=== PATIENT | female | born 1950 | race Caucasian/White ===

== ENCOUNTER 2016-10-15 20:38 | Emergency (ER) | payer MEDICARE, OTHER ==
[~2016-10-15] VITALS: Ht 167.6 cm; Wt 96.3 kg
[~2016-10-15 20:38] MED LIST: ALBU8.5H2 INHALATION
[2016-10-15 20:58] VITALS: BP 159/99; PULSE 106; RESP 16; O2SAT 97
--- NOTE | 2016-10-15 23:44 | ED.REPORT ---
HPI-General Illness Date of Service October 15, 2016 ED Provider: Trevor Ortiz MD The pt is a 66 year old female who presents to the ED due to 1 week of purple toes. Associated symptoms include bilateral leg swelling, prickly feeling in her legs, and intermittently cold hands and feet. Pt reports that she does feel like she cant breathe as well as normal and has a slight cough. She has no hx of heart disease. She has never experienced these symptoms previously. She denies chest pain. Nursing Notes Stated Complaint: SWOLLEN BLUE/PURPLE TOES, LIGHT HEADED Chief Complaint: Extremity Trauma Nursing Notes Reviewed: Yes Allergies: Coded Allergies: codeine (Verified Allergy, Severe, n/v, 10/15/16) hydrocodone (Verified Allergy, Severe, n/v, 10/15/16) Sulfa (Sulfonamide Antibiotics) (Verified Allergy, Unknown, 10/15/16) Scheduled Albuterol HFA (Proair HFA) 8.5 Gm Hfa.aer.ad 2 PUFFS INHALATION Q4H General Time Seen by MD: 23:23 Chief Complaint Other (bilateral purple toes) Hx Obtained From: Patient Arrived By: Walk-in Sudden in Onset?: Yes Onset Occurred: 1 week ago Symptom Duration: Since onset Severity: Current: No pain currently Recent Healthcare: No recent doctor visit, No recent hospitalization Similar Sx Previous: No Past Medical History Past Medical History asthma irritable bowel syndrome Past Surgical History Reports: Hysterectomy Smoking History Never Smoker Social History Other Social History: Good social support, , Local resident Ambulatory Status Independent Review of Systems purple toes slightly cold hands and feet Full Review of Systems Respiratory: Reports: Non-productive cough, Shortness of breath Cardiovascular: Denies: Chest pain Complete sys rev & neg: except as marked. Physical Exam Vital Signs Vital Signs Date Time Temp Pulse Resp B/P Pulse Ox O2 Delivery O2 Flow Rate FiO2 10/16/16 00:12 36.6 89 16 174/89 97 Room Air 10/15/16 23:53 89 174/89 97 Room Air 10/15/16 20:58 36.6 106 16 159/99 97 Initial VS: Reviewed Head / Eyes: Atraumatic, Normocephalic, PERRL ENT: Mucous membranes moist Neck: Supple, Non-tender Respiratory: Breath sounds normal, Clear to auscultation, No respiratory distress Abdomen / GI: Soft, Non-tender, No guarding, No rebound Back: No CVA tenderness Extremities: Vascular intact, Neuro intact, No swelling, No tenderness Skin: Warm, Dry Neurologic: Alert, Oriented General/Constitutional: Awake, Alert, No acute distress, Cooperative, Not toxic appearing Cardiovascular: Heart rate NL, Regular rhythm, Heart sounds NL, No gallop, No murmurs, No rubs faint pulses good capillary refill Re-Eval/Medical Decision Med Decision/Clinical Course 66-year-old with transient purple toes and no other findings to suggest vascular disease. Good capillary refill, intact pulses, and no evident ischemic changes. She is not a smoker, no active peripheral vascular disease. Pattern suggests intermittent vasospasm, possibly Raynaud's phenomenon. Discharged home in stable condition for follow-up with PCP. Counseled Regarding: Diagnosis, Lab results, Need for follow-up, When/why to return to ED Discharge & Departure Primary Impression: Arterial spasm Additional Impression: Raynauds phenomenon Disposition: Home Discharge Condition All VS Reviewed: Yes Condition: Stable Additional Instructions: There are no acute findings for your symptoms, but no suggestion of any dangerous cause. We suspect spasm as the source, and this can happen for a number of reasons, but they are almost all self-limited. Avoid excessive caffeine consumption. I recommend you follow up with your primary care physician in the next week. Return to the Emergency Room for any new or worsening symptoms including chest pain, shortness of breath, and lower extremity swelling. I hope you feel better soon! Avoid contact with the cat. Keep the cat out of your sleeping room. This should be your last Cat. Referrals: Angel Verduzco MD (PCP) Scribe Attestation Portion of this note were transcribed by Suma Guthrie. I, Dr. Trevor Ortiz, personally performed the history, physical exam, and medical decision- making: I reviewed and confirmed the accuracy for the information in the transcribed note. Signed by: natalya Perez, 10/16/16 0100 copies to: Angel Verduzco MD, Christopher W MD October 15, 2016 23:44 Suma Guthrie October 15, 2016 23:50
[2016-10-15 23:53] VITALS: BP 174/89; PULSE 89; O2SAT 97
[2016-10-16 00:12] VITALS: BP 174/89; PULSE 89; RESP 16; O2SAT 97
== END 2016-10-16 00:13 | disposition home or self-care (01) ==
LOC: SED 20:38
DX: I73.00 Raynaud's syndrome without gangrene (principal); M79.89 Other specified soft tissue disorders; R05 Cough; J45.909 Unspecified asthma, uncomplicated; Z88.2 Allergy status to sulfonamides; Z88.5 Allergy status to narcotic agent

== ENCOUNTER 2017-02-10 16:29 | Observation (INO) | payer MEDICARE, OTHER ==
[~2017-02-10] VITALS: Ht 162.6 cm; Wt 91.2 kg
[2017-02-10 02:52] VITALS: BP 126/73; PULSE 81; O2SAT 96
[2017-02-10 16:31] VITALS: BP 153/100; PULSE 88; RESP 16; O2SAT 96
--- NOTE | 2017-02-10 16:53 | ED.REPORT ---
HPI-Chest Pain 40 and Over Date of Service Feb 10, 2017 ED Provider: Eladio Ziegler DO Patient is a 66 year old female who presents to the ED complaining of intermittent L sided pressure and palpitations onset yesterday. She has had three episodes, each while at rest, that last just a few seconds accompanied by nausea and a brief headache with some eye pain. Associated symptoms include fatigue. She denies diaphoresis, vomiting, syncope, numbness, focal weakness, melena, hematochezia, or any other symptoms. Nursing Notes Stated Complaint: CHEST PAIN/DIZZINESS Chief Complaint: Chest Pain Nursing Notes Reviewed: Yes Allergies: Coded Allergies: codeine (Verified Allergy, Severe, n/v, 10/15/16) hydrocodone (Verified Allergy, Severe, n/v, 10/15/16) Sulfa (Sulfonamide Antibiotics) (Verified Allergy, Unknown, 10/15/16) Scheduled Albuterol HFA (Proair HFA) 8.5 Gm Hfa.aer.ad 2 PUFFS INHALATION Q4H General Time Seen by MD: 16:52 Chief Complaint Chest pressure Hx Obtained From: Patient Arrived By: Walk-in Sudden in Onset?: Yes Onset Occurred: Yesterday Symptom Duration: Intermittent Location: : Chest left Quality: Pressure Severity: Current: Moderate Severity: Maximum: Moderate Similar Sx Previous: No Risk Factors )( CAD Risk Stratification No Diabetes mellitus, No Hyperlipidemia, No Hypertension Risk factors reviewed )( TAD Risk Stratification No Hypertension, No Risk factors reviewed )( PE Risk Stratification No , No , No Previous DVT, No Previous PE Risk factors reviewed HEART Score HEART for MACE Score: 4-7 (mod risk 12%-16.6%) (4) Past Medical History Past Medical History asthma irritable bowel syndrome anxiety arthritis dry eyes Past Surgical History R ankle Reports: Cholecystectomy, Hysterectomy Reports: Tubal ligation Family History Grandfather at 42 from [place] Reports: Coronary artery disease Smoking History Never Smoker Social History Other Social History: Good social support, , Local resident Ambulatory Status Independent Review of Systems Constitutional: Reports: Fatigue Cardiovascular: Reports: Chest pain, Palpitations GI: Reports: Nausea, Denies: Hematochezia, Melena, Vomiting Skin: Denies Diaphoresis Neurologic: Reports: Headache (with eye pain ), Denies: Focal weakness, Numbness Complete sys rev & neg: except as marked. Physical Exam Initial Vital Signs Vital Signs (First) Date Time Temp Pulse Resp B/P Pulse Ox O2 Delivery O2 Flow Rate FiO2 02/10/17 16:31 36.4 88 16 153/100 96 Room Air Initial VS: Reviewed, Vital signs abnormal Head / Eyes: Atraumatic, Normocephalic Neck: Supple, Full range of motion Skin: Warm, Dry Neurologic: Alert, Oriented, Nonfocal Psychiatric: Mood/affect normal, Behavior normal, Normal thought content General/Constitutional: Awake, Alert, No acute distress Respiratory / Chest: Atraumatic, Breath sounds NL, Breath sounds = bilat, No respiratory distress Cardiovascular: Heart rate NL, Regular rhythm, Heart sounds NL Abdomen: Atraumatic, Soft, Non-tender Interpretation & Diagnostics Lab Results Interpretation Result Diagram: 02/10/17 1710 02/10/17 1710 Test 02/10/17 17:10 02/10/17 17:12 02/10/17 17:27 White Blood Count 10.4th/mm3 (3.8-10.1) Red Blood Count 4.40mil/mm3 (3.90-5.20) Hemoglobin 13.4g/dL (12.0-15.6) Hematocrit 40.3% (35.0-46.0) Mean Corpuscular Volume 91.6fL (81-100) Mean Corpuscular Hemoglobin 30.5pg (27.0-35.0) Mean Corpuscular Hemoglobin Concent 33.3% (32.0-37.0) Red Cell Distribution Width 12.5% (12.3-15.4) Platelet Count 288bil/L (150-400) Neutrophils (%) (Auto) 39.7% (40-74) Lymphocytes (%) (Auto) 50.9% (14-46) Monocytes (%) (Auto) 7.5% (4-12) Eosinophils (%) (Auto) 1.6% (0-5) Basophils (%) (Auto) 0.2% (0-3) Sodium Level 137mEq/L (134-144) Potassium Level 4.5mEq/L (3.5-5.2) Chloride Level 99mEq/L (97-108) Carbon Dioxide Level 22mmol/L (18-29) Blood Urea Nitrogen 14mg/dL (8-27) Creatinine 0.88mg/dL (0.57-1.00) Estimat Glomerular Filtration Rate 92mL/min (>59) Glucose Level 99mg/dL (60-99) Calcium Level 9.4mg/dL (8.5-10.1) Magnesium Level 2.0mg/dL (1.6-2.6) Total Bilirubin 0.2mg/dL (0.0-1.2) Aspartate Amino Transf (AST/SGOT) 17U/L (0-50) Alanine Aminotransferase (ALT/SGPT) 19U/L (0-32) Alkaline Phosphatase 78U/L (25-165) Troponin T < 0.010ug/L (0.0-0.011) Pro-B-Type Natriuretic Peptide 83.83pg/mL (0-301) Total Protein 7.2g/dL (6.4-8.4) Albumin 4.2g/dL (3.4-5.0) D-Dimer < 0.50mg/L FEU (<0.50) Hold Ness Top Tube Received (Received) ECG Interpretation ECG Interpretation: Sinus rate 86 non-specific ST changes Time: 16:49 Interpreted by: ED physician X-Ray Chest Interpretation Chest Xray Interpretation: IMPRESSION: 1. No acute cardiopulmonary disease. Dictated by: Oswald Lamar M.D. on 02/10/2017 at 17:16 Approved by: Oswald Lamar M.D. on 02/10/2017 at 17:16 View: Portable, 1 view Interpretation / Wet Read by: Interpret - Radiologist Re-Eval/Medical Decision Med Decision/Clinical Course Heart score of 4, and chest pain relieved after 2 nitroglycerin. We will plan to admit for cardiac rule out and provocative stress testing. Time of Eval: 17:59 Re-Evaluation/Progress Note: Rechecked pt who is nearly pain free after 1 nitro but reports some chest tenderness. Discussed plan for admission. Patient understands and agrees with plan. All questions addressed at this time. Counseled Regarding: Diagnosis, Lab results, Need for admission Discharge & Departure Primary Impression: Chest pain Chest pain type: unspecified Qualified Code: R07.9 - Chest pain, unspecified Disposition: ADMITTED TO HOSPITAL Discharge Condition All VS Reviewed: Yes Condition: Stable Referrals: Angel Verduzco MD (PCP) Scribe Attestation Portions of this note were transcribed by Leonila Diaz. I, Dr. Ziegler personally performed the history, physical exam and medical decision-making; I reviewed and confirmed the accuracy of the information in the transcribed note. Signed: Iftikhar Acosta, 02/10/17 copies to: nAgel Verduzco MD, Timothy S DO Feb 10, 2017 16:53 LEONILA DIAZ Feb 10, 2017 17:03
[2017-02-10] MEDS ORDERED: Ondansetron 2 mg/mL 2 mL Inj IVPUSH PRN ×2 (17:05→18:20)
[2017-02-10 17:14] LABS: BASOPHILS % (AUTO) 0.2 % (0-3); EOSINOPHILS % (AUTO) 1.6 % (0-5); MONOCYTES % (AUTO) 7.5 % (4-12); Mean Corpuscular Hemoglobin 30.5 pg (27.0-35.0); Mean Corpuscular Volume 91.6 fL (81-100); NEUTROPHILS % (AUTO) 39.7 % (40-74); Platelet Count 288 bil/L (150-400)
--- NOTE | 2017-02-10 17:18 | DRSVH ---
PROCEDURE: X-RAY CHEST ONE VIEW, PORTABLE ([id number]) INDICATIONS: Chest pain TECHNIQUE: One view of the chest was acquired. COMPARISON: [facility], , CHEST 2 VIEW, 07/15/2014, 11:01. FINDINGS: Surgical changes and devices: None. Lungs and pleura: No pleural effusions or pneumothorax. Lungs are clear. Mediastinum: Mediastinal contours appear normal. Heart size is normal. Bones and chest wall: No suspicious bony lesions. Overlying soft tissues appear unremarkable. IMPRESSION: 1. No acute cardiopulmonary disease. Dictated by: Oswald Lamar M.D. on 02/10/2017 at 17:16 Approved by: Oswald Lamar M.D. on 02/10/2017 at 17:16
[2017-02-10 17:45] LABS: TROPONIN T < 0.010 ug/L (0.0-0.011)
[2017-02-10 17:59] VITALS: BP 121/83; PULSE 87; O2SAT 99
[2017-02-10] MEDS ORDERED: Alum-Mag Hydrox-Simeth 30 mL Suspension PO PRN ×2 (18:20→20:45)
[2017-02-10 19:42] VITALS: BP 127/78; PULSE 78; RESP 20; O2SAT 97
[2017-02-10] MEDS ORDERED: MULT-1053 PO (19:47)
[2017-02-10] MEDS ORDERED: PROP1DRO BOTH_EYES (19:47)
[2017-02-10] MEDS ORDERED: MULT-528 PO (19:52)
[2017-02-10] MEDS ORDERED: CYAN10008 PO (19:52)
[2017-02-10] MEDS ORDERED: CHOL200025 PO (19:52)
[2017-02-10] MEDS ORDERED: TURMERIC PO (19:52)
[2017-02-10] MEDS ORDERED: CALC-51 PO (19:52)
[2017-02-10] MEDS ORDERED: FEG324 PO (19:52)
[2017-02-10] MEDS ORDERED: ZINC50TA4 PO (19:52)
[2017-02-10 20:05] VITALS: PULSE 75
[2017-02-10 20:37] VITALS: BP 147/90; PULSE 68; RESP 18; O2SAT 97
[2017-02-10] MEDS ORDERED: Senna-Docusate 8.6-50 mg Tablet PO PRN (20:45)
[2017-02-10] MEDS ORDERED: Polyethylene Glycol (PEG) 17 Gm Powder PO PRN (20:45)
[2017-02-10] MEDS ORDERED: Atropine 1 mg/10 mL (Code) Syringe IVPUSH PRN (20:45)
--- NOTE | 2017-02-10 21:33 | PCM.HPMED ---
Subjective Date of Service Feb 10, 2017 Primary Provider: Admitting Physician: Annemarie Yap DO Primary Care Physician: Angel Verduzco MD Attending Physician: Annemarie Yap DO Admit Status: From the Emergency Department Chief Complaint: Chest heaviness History of Present Illness: Patient is a 66-year-old female that presents with chest heaviness with exertion and at rest relieved with nitroglycerin in the ED. She has a history of anxiety with chest pain, Reynauds syndrome, and prediabetes. Patient presented to ED per private car after being advised by triage nurse to call an ambulance for chest pressure accompanied by nausea and sweating this morning. Patient reports chest pressure started while sitting at [employer]levism and worsened after walking into her house. It did not resolve until she was treated with nitroglycerin in the emergency department. She reports that she has been having chest pressure on and off both at rest and with exertion for approximately 3 weeks accompanied by fatigue and intermittent labored breathing. Patient admits to intermittent back pain on the left during this time as well. Patient has recent intentional weight loss of 17 pounds over the last 3 months after diagnosis of prediabetes and Reynaud's syndrome affecting her toes. She admits to rare alcohol use, a distant history of tobacco use (a few cigarettes per day for 1 year). Over the last 3 months, she has had a diet change to vegetarian, low fat diet. She supplements with vitamins including iron, B12. Patient denies personal history of heart disease, admits her maternal grandfather of [place] at 42. Patient denies current chest pain, dizziness, shortness of breath, nausea, sweating, and fatigue. Review of Systems: For pertinent positives and negatives in history of present illness. Complete 12 point review of systems performed and otherwise negative. Allergies Coded Allergies: codeine (Verified Allergy, Severe, n/v, 10/15/16) hydrocodone (Verified Allergy, Severe, n/v, 10/15/16) Sulfa (Sulfonamide Antibiotics) (Verified Allergy, Unknown, 10/15/16) PMH 1. Chest pain 2. Prediabetes 3. Irregular heartbeat 4. Arterial spasm 5. Raynaud's Phenomenon Surgical History 1. Hysterectomy at age 34 2. Surgical repair of right foot Family History 1. Maternal grandfather, [place] age 42, cause of No other contributory family history Social History Hx Alcohol Use: Yes (rare) Hx Substance Use: No Hx Tobacco Use: Yes (less than 1 year half pack) Smoking Status: Former Smoker, Never Smoker Years of Smokin Living Arrangement: with Family Exam Vital Signs Vital Sign - Last Date Time Temp Pulse Resp B/P Pulse Ox O2 Delivery O2 Flow Rate FiO2 02/10/17 20:37 36.4 68 18 147/90 97 Room Air Exam GENERAL: Nondistressed, obese female. HEENT: NC/AT, EOM intact, PERRLA, clear conjunctiva, white sclera. No nasal discharge, nontender sinuses. No pharyngeal erythema or exudate. CV: Regular rate and rhythm, no rubs, murmurs, or gallops appreciated. Capillary refill less than 2 seconds bilaterally lower extremity. Dorsal and tibial pulses 2 of 4 bilaterally. Trace edema right ankle, no edema left ankle. RESP: Clear to auscultation bilaterally, no wheezes or rhonchi appreciated. ABD: Bowel sounds normal, nondistended, nontender all 4 quadrants. LYMPH: No cervical adenopathy appreciated. EXT: No swelling except right ankle as seen above. PSYCH: Alert and oriented 4, normal affect, linear and appropriate communication. NEURO: Light touch sensation intact upper and lower extremities bilaterally, muscle strength 4 out of 4 upper and lower extremity bilaterally, no facial asymmetry is appreciated. DTRs equal bilaterally upper and lower extremity. SKIN: No rashes apparent on his skin. Lab and Diagnostics Labs Troponin T at 17:10 <0.010 Result Diagram: 02/10/17170902/10/170 Assessment & Plan 66-year-old female presented with chest pressure present at rest and with exertion relieved with nitroglycerin. 1. Chest pain/pressure, present on admission - Chest pressure associated with nausea and sweating. - Low Newcomb score with only 2 risk factors. - Patient has prediabetes, obesity with chest pain relieved with nitroglycerin. - Normal chest x-ray. - First troponin 17:10 <0.010. Second to be performed at 23:00, and third to be performed at 5:00 tomorrow morning. - Stress test to be performed in the morning. - Nothing by mouth after midnight. - Patient received nitroglycerin, aspirin, and Zofran in the emergency department. - Daily aspirin - Nitroglycerin for chest pain - Zofran for nausea - Start atorvastatin - Add beta stefano if symptoms return otherwise hold off due to upcoming stress test 2. Prediabetes, present on admission - Patient reports this is diet controlled with fasting blood sugars of 90 at home. - Hemoglobin A1c in the morning. Patient is being admitted under observation status with an expected length of stay less than 2 midnights. Pain Evaluation: Adequate Pain Control GI Prophylaxis: Not indicated VTE Prophylaxis: Sub-Q Heparin (Unfractionated) VTE Mechanical Devices: Intermittant Pneumatic CD Resuscitation Status: CPR: Attempt Resuscitation Attending Statement The patient was seen and examined together with house staff on 02/10/2017 and I agree with the history, exam and plan as outlined in the note above. Ashia Cano DO Feb 10, 2017 21:33 Annemarie Yap DO Feb 11, 2017 03:11
[2017-02-10 21:42] LABS: Creatine Kinase 88 U/L (21-215)
[2017-02-10 22:56] LABS: APPEARANCE,URINE CLEAR (CLEAR,HAZY); COLOR,URINE YELLOW (YELLOW); OCCULT BLOOD,URINE SMALL (NEGATIVE); PH,URINE 5.5 (5.0-8.0); UROBILINOGEN,URINE NORMAL (NORMAL)
--- NOTE | 2017-02-10 23:10 | NUR ---
Admit note: Pt arrived from the ER, up ambulating in the room independently and steady on feet. Alert and oriented x3. Denies chest pain upon arrival. Came to the ER after having left chest pain, diaphoresis, and a headache per pt. Tele SR 70s. Aware of current plan of care and NPO after midnight status. Oriented to room and call light, is using call light with needs.
[2017-02-10] MEDS: Heparin 5,000 Unit/mL Inj SUBQ SCH (23:50)
[2017-02-11] VITALS (12 sets, daily range): BP systolic 112–144; BP diastolic 69–87; PULSE 56–86; RESP 17–20; O2SAT 96–99
[2017-02-11] MEDS ORDERED: Morphine 2 mg/mL 5 mL Oral Solution PO PRN ×2 (03:35→04:45)
[2017-02-11 03:52] LABS: Creatine Kinase 71 U/L (21-215)
--- NOTE | 2017-02-11 05:10 | NUR ---
Chest pain: Pt had an episode of chest pressure at 2/10 to left chest. Reported feeling "shaky" appeared tearful at the time, stated wanting to know what was "going on" with her. EKG obtained and one nitro administered. BP with one nitro decreased from 144/87 to 112/71. Pt reported after the nitro having "tingling" and a warm feeling down her left arm. MD notified, both night residents talked with the pt, PO Morphine was ordered as there was no access to IV Morphine at the time. Reported slight nausea when getting up to the BSC. After the Morphine took effect, pt was assisted with positioning in the bed due to chronic back pain and resting.
[2017-02-11 05:40] LABS: BASOPHILS % (AUTO) 0.1 % (0-3); EOSINOPHILS % (AUTO) 2.2 % (0-5); MONOCYTES % (AUTO) 8.2 % (4-12); Mean Corpuscular Hemoglobin 30.2 pg (27.0-35.0); Mean Corpuscular Volume 91.4 fL (81-100); NEUTROPHILS % (AUTO) 37.4 % (40-74); Platelet Count 246 bil/L (150-400)
[2017-02-11 06:43] LABS: TROPONIN T 0.01 ug/L (0.0-0.011)
[2017-02-11] MEDS ORDERED: Albuterol 2.5 mg/3 mL Inhalation Solution NEB PRN (07:00)
[2017-02-11] MEDS: Heparin 5,000 Unit/mL Inj SUBQ SCH ×2 (07:45→16:22)
--- NOTE | 2017-02-11 09:15 | NUR ---
Social Work-initial assessment/ readiness for discharge: Data:See initial assessment. Pt is a 66 y/o female who was admitted on 02/10/17 for chest pain per H&P. Pt's insurance is [employer] and PCP is Angel Verduzco MD. EMR Reviewed. Pt's readmission score is 0. SW met with pt at bedside, SW role explained. Pt is alert and oriented x3. Pt resides at home with her in [place] where she remains independent with ADLS. Pt does not use any DME and drives. Pt has no HH or SNF history. Pt has no intermediate care insurance or VA Benefits. SW discussed DPOA/ advanced directive, pt confirms she has completed this, SW encouraged a copy to be brought in. No concerns noted from MD stevedoring supervisor regarding pt's capacity for self care. Pt has been up independent in her room. Pt's to provide transport home. No anticipated discharge needs. SW will continue to follow if needs arise. Assessment:pt who is independent at baseline. Plan:Pt to discharge home when medically stable via POV. No anticipated discharge needs. SW will continue to follow if needs arise. EDEL Tran Addendum: 02/11/17 at 0920 by DAVID AMEZCUA Amended: Links added.
--- NOTE | 2017-02-11 10:14 | NUR ---
Case Management: DENISE given and explained to pt. Niharika NORRISRN
--- NOTE | 2017-02-11 15:04 | DRSVH ---
PROCEDURE: EITHER REST OR STRESS ONLY Exercise myocardial perfusion SPECT with gated imaging and ejection fraction RADIOPHARMACEUTICAL: 22.1 mCi Tc-99m tetrofosmin IV at peak exercise. INDICATIONS: CHEST PAIN ON EXERTION. TECHNIQUE: Radiopharmaceutical was injected at peak stress test. SPECT images were obtained, with p erfusion images in short axis, horizontal long axis, and vertical long axis views. Gated images were reviewed using [employer] software. COMPARISON: None. CARDIAC STRESS: A standard Greg treadmill exercise tolerance test was performed by the patient unde r the supervision of an attending staff. The patient exercised for 3 minutes and 34 seconds; functio nal aerobic impairment (EDGARDO) is +35%. Hemodynamic data: There was normal blood pressure response. There was enhanced chronotropic respons e. Symptoms: The patient developed generalized fatigue. EKG: Baseline rhythm was sinus with left anterior fascicular block. Stress EKG did not reveal any o bvious inducible ischemic changes. There were no significant arrhythmias. FINDINGS: Raw data: There appears to be adequate myocardial uptake. Left ventricular function: Stress LV ejection fraction 64% with stress end-diastolic volume 70 mL. I do not see any obvious wall motion abnormalities. Myocardial perfusion: Stress supine and stress prone images reveal normal myocardial perfusion. IMPRESSION: 1. This is a normal myocardial perfusion study with preserved LV function; however patient has poor f unctional capacity. She was able to achieve 4.6 METS of workload. Her functional aerobic impairment is +35%. Clinical correlation is recommended. Dictated by: Alexander Allan M.D. on 02/11/2017 at 14:29 Transcribed by: PAIGE on 02/11/2017 at 18:04 Approved by: Alexander Allan M.D. on 02/13/2017 at 16:43
--- NOTE | 2017-02-11 16:34 | DRSVH ---
[facility] [address] [place] [address] Echocardiogram Report Name: BARBARA FRANKS RStudy Date: 09/2016 Height: 64 in Hospital Exam Location: [facility] Weight: 201 lb Gender: Female BSA: 2.0 m2 : 1950 Age: 66 yrs BP: 129/75 mmHg Reason For Study: Chest Pain Ordering Physician: HOSPITALIST [facility] Performed By: Idania Giron Referring Physician: LARRY ARNOLD Interpretation Summary The left ventricle is grossly normal size. The ejection fraction is estimated to be 50-55%. There is mild global hypokinesis of the left ventricle. The right ventricle is grossly normal size. The right ventricular systolic function is normal. No significant valvular pathology seen. Procedure: A two-dimensional transthoracic echocardiogram with color flow and Doppler was performed. The study quality was technically good. There is no prior echocardiogram noted for this patient. The patient was in normal sinus rhythm during the exam. Left Ventricle: Left ventricular wall thickness is at the upper limits of normal. The left ventricle is grossly normal size. Proximal septal thickening is noted. There is no echo evidence for significant left ventricular outflow tract obstruction. The ejection fraction is estimated to be 50-55%. There is mild global hypokinesis of the left ventricle. Assessment of diastolic parameters indicates a relaxation abnormality of the left ventricle, consistent with normal filling pressures. Right Ventricle: The right ventricle is grossly normal size. The right ventricular systolic function is normal. Atria: The left atrial size is normal. Right atrial size is normal. The interatrial septum is intact with no evidence for an atrial septal defect. Mitral Valve: The mitral valve leaflets appear mildly thickened, but open well. There is mild mitral annular calcification. There is trace mitral regurgitation. Aortic Valve: The aortic valve is trileaflet. The aortic valve opens well. The aortic valve is slightly calcified. No aortic regurgitation is present. Tricuspid Valve: The tricuspid valve is normal in structure and function. There is trace tricuspid regurgitation. Pulmonary artery pressures cannot be estimated because of the lack of a measurable TR jet velocity. Pulmonic Valve: The pulmonic valve is not well seen, but is grossly normal. There is a trace or physiologic amount of pulmonic regurgitation. Great Vessels: The aortic root is normal size. The ascending aorta is at the upper limits of normal in size. The IVC is of normal diameter and collapses greater than 50% with a sniff. This suggests a low right atrial pressure of 3 mm Hg. Pericardium/ Pleura There is no pericardial effusion. There is an anterior echo-free space consistent with a fat pad. There is no pleural effusion. MMode/2D Measurements & Calculations LVIDd: 5.2 cm RA long axis LVOT diam: 2.2 cm LVIDs: 3.0 cm LA A2 area: 16.6 cm Ao root diam FS: 42.8 % LA A4 area: 15.6 cm RA area IVSd: 0.91 cm LA length (vol) Ao Arch Diam (Prox LVPWd: 0.98 cm : 15.3 cm Trans): 2.4 cm LA vol: 49.8 ml RA vol LA vol index : 42.4 ml RA : 25.4 ml/m2 : 21.6 mm2 LV blackman. diameter/BSA LV sys. diameter/BSA TAPSE: 1.7 cm (cm/m^2): 2.7 (cm/m^2): 1.5 Doppler Measurements & Calculations Ao V2 max: 99.4 cm/sec MV E max adryan MV E/A: 0.84 PA V2 max Ao max P.9 mmHg : 51.5 cm/sec Med Peak E' Adryan : 52.8 cm/sec Ao mean P.5 mmHg MV A max adryan PA mean PG LVOT Max Adryan : 61.6 cm/sec E/E' med: 9.3 : 0.63 mmHg : 81.9 cm/sec Lat Peak E' Adryan [place](I,D): 3.2 cm sev ratio: 0.83 E/E' lat: 6.4 E/e' average: 7.9 MV dec time: 0.29 sec Ao V2 mean LV V1 max PG PA V2 mean : 77.5 cm/sec : 38.5 cm/sec Ao V2 VTI: 21.9 cmLV V1 VTI: 18.1 cm PA pr(Accel) [place](V,D): 3.2 cm2 : 34.0 mmHg [place] indexed to BSA (cm^2/m^2): 1.7 Reading Physician:PM
--- NOTE | 2017-02-11 16:45 | PCM.DIMED ---
Discharge Instructions Date of Service Feb 11, 2017 Dates of Hospitalization Feb 10, 2017 at 19:01 Discharge Diagnosis Discharge Diagnosis 1. Chest pain/pressure, present on admission.ACS ruled out 2. Prediabetes, present on admission Test Results Test Results stress test normal Diet Discharge Diet: Low fat, Low Sodium Activity Discharge Activity: Limited until seen by PCP Call your provider Call your provider for: Fever or Chills, Shortness of breath, Bleeding, Chest pain, Vomitting, Excessive diarrhea, Weakness (unilateral) Patient Instructions Patient Instructions You were hospitalized due to chest pain. Workup is negative for heart attack/ coronary artery disease. Pain may be due to acid reflux. Please take Protonix 20 mg daily. Please follow-up with PCP in 1 week. Follow-up Provider: Angel Verduzco MD Follow-up with PCP in: 1 week Dong Zapata MD Feb 11, 2017 16:45
[2017-02-11] MEDS ORDERED: PANT20T PO (16:46)
[2017-02-11] MEDS ORDERED: ASPI81TA3 PO (16:46)
--- NOTE | 2017-02-11 16:46 | NUR ---
Social Work-discharge: Data:EMR reviewed. Pt is on day 1 of hospitalization for chest pain per H&P. Pt is medically stable for discharge. Pt resides at home with her in [place] where she remains independent with ADLs. Per RN notes, pt has been up independent at baseline. No discharge needs identified. All updated and agreeable to plan. Assessment:pt who is independent at baseline. Plan:Pt to discharge home today via POV. No discharge needs identified. All updated and agreeable to plan. EDEL Tran
--- NOTE | 2017-02-11 17:40 | NUR ---
Discharge Patient discharge to home with all belongings at 1739. Explained to patient new medications (aspirin and pantoprazole), when next medications are due and discharge instructions. Dc'd IV intact. Dc'd telemetry. Vitals stable. Patient left floor via wheelchair accompanied by and CUSTOMER SERVICE LEADER with no signs of distress.
--- NOTE | 2017-02-11 20:30 | PCM.DC.MED ---
Discharge Summary Date of Service Feb 11, 2017 Dates of Hospitalization Date of Hospital Admission Feb 10, 2017 at 19:01 Date of Discharge: Feb 11, 2017 Providers: Admitting Physician: Annemarie Yap DO Primary Care Physician: Angel Verduzco MD Attending Physician: Annemarie Yap DO Diagnosis at Time of Discharge Diagnosis at Time of Discharge 1. Chest pain/pressure, present on admission.ACS ruled out 2. Prediabetes, present on admission Procedures Cardiac Echo Impression Interpretation Summary The left ventricle is grossly normal size. The ejection fraction is estimated to be 50-55%. There is mild global hypokinesis of the left ventricle. The right ventricle is grossly normal size. The right ventricular systolic function is normal. No significant valvular pathology seen. Other Diagnostics PROCEDURE: EITHER REST OR STRESS ONLY Exercise myocardial perfusion SPECT with gated imaging and ejection fraction RADIOPHARMACEUTICAL: 22.1 mCi Tc-99m tetrofosmin IV at peak exercise. INDICATIONS: CHEST PAIN ON EXERTION. TECHNIQUE: Radiopharmaceutical was injected at peak stress test. SPECT images were obtained, with perfusion images in short axis, horizontal long axis, and vertical long axis views. Gated images were reviewed using [employer] Engine software. COMPARISON: None. CARDIAC STRESS: A standard Greg treadmill exercise tolerance test was performed by the patient under the supervision of an attending staff. The patient exercised for 3 minutes and 34 seconds; functional aerobic impairment ( EDGARDO) is +35%. Hemodynamic data: There was normal blood pressure response. There was enhanced chronotropic response. Symptoms: The patient developed generalized fatigue. EKG: Baseline rhythm was sinus with left anterior fascicular block. Stress EKG did not reveal any obvious inducible ischemic changes. There were no significant arrhythmias. FINDINGS: Raw data: There appears to be adequate myocardial uptake. Left ventricular function: Stress LV ejection fraction 64% with stress end- diastolic volume 70 mL. I do not see any obvious wall motion abnormalities. Myocardial perfusion: Stress supine and stress prone images reveal normal myocardial perfusion. IMPRESSION: 1. This is a normal myocardial perfusion study with preserved LV function; however patient has poor functional capacity. She was able to achieve 4.6 METS of workload. Her functional aerobic impairment is +35%. Clinical correlation is recommended. Dictated by: Alexander lAlan M.D. on 02/11/2017 at 14:29 Transcribed by: PAIGE on 02/11/2017 at 18:04 Brief History per HPI Patient is a 66-year-old female that presents with chest heaviness with exertion and at rest relieved with nitroglycerin in the ED. She has a history of anxiety with chest pain, Reynauds syndrome, and prediabetes. Patient presented to ED per private car after being advised by triage nurse to call an ambulance for chest pressure accompanied by nausea and sweating this morning. Patient reports chest pressure started while sitting at [employer] and worsened after walking into her house. It did not resolve until she was treated with nitroglycerin in the emergency department. She reports that she has been having chest pressure on and off both at rest and with exertion for approximately 3 weeks accompanied by fatigue and intermittent labored breathing. Patient admits to intermittent back pain on the left during this time as well. Patient has recent intentional weight loss of 17 pounds over the last 3 months after diagnosis of prediabetes and Reynaud's syndrome affecting her toes. She admits to rare alcohol use, a distant history of tobacco use (a few cigarettes per day for 1 year). Over the last 3 months, she has had a diet change to vegetarian, low fat diet. She supplements with vitamins including iron, B12. Patient denies personal history of heart disease, admits her maternal grandfather of [place] at 42. Patient denies current chest pain, dizziness, shortness of breath, nausea, sweating, and fatigue. Hospital Course 66-year-old female presented with chest pressure present at rest and with exertion relieved with nitroglycerin. 1. Chest pain/pressure, present on admission - Chest pressure associated with nausea and sweating. -patient has neck pain with left little finger numbness.She has scheduled ortho appointment tomorrow for her cervical spine problem.pain may be neuropathic .will treat her for GERD also - Low Carter score with only 2 risk factors. - Patient has prediabetes, obesity with chest pain relieved with nitroglycerin. - Normal chest x-ray. - troponin negative x3 - Stress test negative - c/w Daily aspirin 81 -trial protonix 20mg - Nitroglycerin for chest pain - Zofran for nausea -lipid panel ok ,LDL 95 2. Prediabetes, present on admission - Patient reports this is diet controlled with fasting blood sugars of 90 at home. - Hemoglobin A1c pemding,follow up with PCP 3.suspected radiculopathy and back pain -f/u with ortho discharge home Exam Vital Signs (Last) Date Time Temp Pulse Resp B/P Pulse Ox O2 Delivery O2 Flow Rate FiO2 02/11/17 17:04 86 133/85 02/11/17 13:21 36.4 17 96 Room Air 02/11/17 02:52 2.00 Exam GENERAL: Nondistressed, obese female. HEENT: NC/AT, EOM intact, PERRLA, clear conjunctiva, white sclera. No nasal discharge, nontender sinuses. No pharyngeal erythema or exudate. CV: Regular rate and rhythm, no rubs, murmurs, or gallops appreciated. Capillary refill less than 2 seconds bilaterally lower extremity. Dorsal and tibial pulses 2 of 4 bilaterally. Trace edema right ankle, no edema left ankle. RESP: Clear to auscultation bilaterally, no wheezes or rhonchi appreciated. ABD: Bowel sounds normal, nondistended, nontender all 4 quadrants. LYMPH: No cervical adenopathy appreciated. EXT: No swelling except right ankle as seen above. PSYCH: Alert and oriented 4, normal affect, linear and appropriate communication. NEURO: Light touch sensation intact upper and lower extremities bilaterally, muscle strength 4 out of 4 upper and lower extremity bilaterally, no facial asymmetry is appreciated. DTRs equal bilaterally upper and lower extremity. SKIN: No rashes apparent on his skin. Test 02/10/17 17:10 02/10/17 17:12 02/10/17 17:27 02/10/17 22:35 Magnesium Level 2.0mg/dL (1.6-2.6) Total Bilirubin 0.2mg/dL (0.0-1.2) Aspartate Amino Transf (AST/SGOT) 17U/L (0-50) Alanine Aminotransferase (ALT/SGPT) 19U/L (0-32) Alkaline Phosphatase 78U/L (25-165) Pro-B-Type Natriuretic Peptide 83.83pg/mL (0-301) Total Protein 7.2g/dL (6.4-8.4) Albumin 4.2g/dL (3.4-5.0) Thyroid Stimulating Hormone (TSH) 2.690uIU/mL (0.450-4.500) D-Dimer < 0.50mg/L FEU (<0.50) Hold Ness Top Tube Received (Received) Urine Color Yellow (YELLOW) Urine Appearance Clear (CLEAR,HAZY) Urine pH 5.5 (5.0-8.0) Urine Specific [place] 1.010 (1.003-1.035) Urine Protein Negativemg/dL (NEG,TRACE) Urine Glucose (UA) Negativemg/dL (NEGATIVE) Urine Ketones Negativemg/dL (NEGATIVE) Urine Occult Blood Small (NEGATIVE) Urine Nitrite Negative (NEGATIVE) Urine Bilirubin Negative (NEGATIVE) Urine Urobilinogen Normalmg/dL (NORMAL) Urine Leukocyte Esterase Negative (NEGATIVE) Urine RBC 3-10/hpf (0-2) Urine WBC 0-5/hpf (0-5) Urine Epithelial Cells Occasional/hpf (NONE-MOD) Urine Crystals None seen (NONE SEEN) Urine Bacteria None/hpf (NONE-FEW) Urine Hyaline Casts None/lpf (NONE) Urine Granular Casts None seen (NONE SEEN) Urine Waxy Casts None seen (NONE SEEN) Urine Red Blood Cell Casts None seen (NONE SEEN) Urine White Blood Cell Casts None seen (NONE SEEN) Urine Mucus None seen (None Seen) Urine Trichomonas None seen (NONE SEEN) Urine Yeast None (NONE SEEN) Urinalysis Comment None Urine Culture Reflexed Not indicated Test 02/11/17 02:35 02/11/17 05:10 Total Creatine Kinase 71U/L (21-215) Creatine Kinase MB 1.4ng/mL (0.0-5.3) Creatine Kinase MB % % (0.0-5.0) White Blood Count 7.6th/mm3 (3.8-10.1) Red Blood Count 4.20mil/mm3 (3.90-5.20) Hemoglobin 12.7g/dL (12.0-15.6) Hematocrit 38.4% (35.0-46.0) Mean Corpuscular Volume 91.4fL (81-100) Mean Corpuscular Hemoglobin 30.2pg (27.0-35.0) Mean Corpuscular Hemoglobin Concent 33.1% (32.0-37.0) Red Cell Distribution Width 12.6% (12.3-15.4) Platelet Count 246bil/L (150-400) Neutrophils (%) (Auto) 37.4% (40-74) Lymphocytes (%) (Auto) 51.8% (14-46) Monocytes (%) (Auto) 8.2% (4-12) Eosinophils (%) (Auto) 2.2% (0-5) Basophils (%) (Auto) 0.1% (0-3) Sodium Level 140mEq/L (134-144) Potassium Level 4.7mEq/L (3.5-5.2) Chloride Level 103mEq/L (97-108) Carbon Dioxide Level 23mmol/L (18-29) Blood Urea Nitrogen 12mg/dL (8-27) Creatinine 0.83mg/dL (0.57-1.00) Estimat Glomerular Filtration Rate 99mL/min (>59) Glucose Level 96mg/dL (60-99) Calcium Level 9.3mg/dL (8.5-10.1) Troponin T 0.010ug/L (0.0-0.011) Triglycerides Level 182mg/dL (0-149) Cholesterol Level 173mg/dL (100-199) LDL Cholesterol, Calculated 95.600mg/dL (0-99) VLDL Cholesterol 36.400mg/dL HDL Cholesterol 41mg/dL (>39) Cholesterol/HDL Ratio 4.22 (0.0-4.4) Discharge Medications Discharge Medications ([Turmeric Tea]) 100 ML PO 4X/WEEK (Reported) Aspirin Chew (Aspirin Chew) 81 Mg Chew 81 MG PO DAILY Prescribed by: LARRY ARNOLD MD Calcium Carbonate/Vitamin D3 (Calcium 500 + Vit D 400 Tablet) 1 Each Tablet 1 EACH PO QAM (Reported) Cholecalciferol (Vitamin D3) (Vitamin D3) 2,000 Unit Tablet 2,000 UNIT PO QAM ( Reported) Cyanocobalamin (Vitamin B-12) (Vitamin B-12) 1,000 Mcg Tablet 1,000 MCG PO QAM ( Reported) Ferrous Gluconate (Ferrous Gluconate) 324 Mg Tab 324 MG PO DAILY (Reported) Multivits,Ca,Minerals/Iron/FA (Thera M Plus Tablet) 1 Each Tablet 3 EACH PO QAM (Reported) Pantoprazole DR (Protonix) 20 Mg Tablet 20 MG PO DAILY Prescribed by: LARRY ARNOLD MD Propylene Glycol/Peg 400/Pf (Systane 0.3-0.4% Eye Drops) 1 Each Droperette 2 DROP BOTH_EYES 5XD (Reported) Zinc Gluconate (Zinc) 50 Mg Tablet 50 MG PO QAM (Reported) As needed Albuterol HFA (Proair HFA) 8.5 Gm Hfa.aer.ad 2 PUFFS INHALATION Q4H PRN PRN For Shortness of Breath (Reported) Followup Plan Disposition: home Discharge Diet: Low fat, Low Sodium Discharge Activity: Limited until seen by PCP Patient Instructions You were hospitalized due to chest pain. Workup is negative for heart attack/ coronary artery disease. Pain may be due to acid reflux. Please take Protonix 20 mg daily. Please follow-up with PCP in 1 week. Follow-up Provider: Angel Verduzco MD Follow-up with PCP in: 1 week copies to: Angel Verduzco MD, Melaku MD Feb 11, 2017 20:30
== END 2017-02-11 17:43 | disposition home or self-care (01) ==
LOC: SED 16:29 → MPC 19:01
PROVIDERS: ADMIT Internal Medicine; ATTEND Internal Medicine
DX: R07.89 Other chest pain (principal); F41.9 Anxiety disorder, unspecified; I73.00 Raynaud's syndrome without gangrene; R73.03 Prediabetes; Z87.891 Personal history of nicotine dependence; Z79.82 Long term (current) use of aspirin; Z79.899 Other long term (current) drug therapy